=== PATIENT | male | born 1970 | race Caucasian/White ===

== ENCOUNTER 2024-01-06 05:46 | Day surgery (SDC) | payer SELFPAY ==
--- NOTE | 2024-01-02 09:18 | EKG12_ITS ---
Test Reason : PREOP Blood Pressure : / mmHG Vent. Rate : 067 BPM Atrial Rate : 067 BPM P-R Int : 134 ms QRS Dur : 090 ms QT Int : 368 ms P-R-T Axes : 053 066 066 degrees QTc Int : 388 ms Normal sinus rhythm Normal ECG Confirmed by GIO COMER, LESLEY ([id number]), assistant production editor RADHA KELLEY ([id number]) on 01/02/2024 1:25:50 PM Referred By: Ross Samuels Confirmed By:LESLEY POWERS MD
[2024-01-02 10:25] LABS: Hematocrit 43.6 % (40-54); Hemoglobin 14.7 g/dL (13.0-16.5); Mean Corp Hgb Conc 33.7 g/dL (32-36); Mean Corpuscular Hgb 31.5 pg (27.0-32.0); Mean Corpuscular Volume 93.4 fL (80-94); Mean Platelet Vol. 10.9 fl (6.2-12.0); Platelet Count 328 K/mm3 (150-450); RBC Distribution Width CV 13.4 % (11.6-14.6); RBC Distribution Width SD 45.9 fl (35.1-43.9); Red Blood Count 4.67 M/mm3 (4.6-6.2); White Blood Count 10.8 K/mm3 (4.4-11.0)
[2024-01-02 10:41] LABS: International Normalized Ratio 1.1; Prothrombin Time (Protime)PT. 13.9 SECONDS (11.7-14.9)
[2024-01-02 10:42] LABS: Partial Thromboplast Time 31.3 Seconds (24.1-36.2)
[2024-01-02 11:09] LABS: AST(SGOT) 19 U/L (15-37); Alanine Aminotransfer ALT/SGPT 21 U/L (16-61); Albumin, Serum 3.9 g/dL (3.2-5.0); Alkaline Phosphatase 53 U/L (45-117); Anion Gap 7 (5-15); BUN 12 mg/dL (7-18); BUN/Creat Ratio 14.1 RATIO (10-20); Bilirubin, Direct 0.16 mg/dL (0.00-0.30); Calcium,Total 9.2 mg/dL (8.5-10.1); Chloride 101 mmol/L (98-107); Creatinine, Serum 0.85 mg/dL (0.70-1.30); EST Glomerular Filtration Rate 100 mL/min (>60); Est Glom Filt Rate - Afr Amer 120 mL/min (>60); Globulin 3.9 g/dL (2.2-4.2); Glucose 90 mg/dL (74-106); Potassium 4.3 mmol/L (3.5-5.1); Protein, Total 7.8 g/dL (6.4-8.2); Sodium Level 135 mmol/L (136-145)
[2024-01-06] VITALS (12 sets, daily range): BP systolic 110–151; BP diastolic 82–96; PULSE 72–90; RESP 16–18; TEMP 36.3–37.2; O2SAT 94–100; BMI 21.3
[2024-01-06] MEDS: Lactated Ringers 1,000 ML 15 ML IV (06:36)
--- NOTE | 2024-01-06 06:41 | HP.PCM_ITS ---
History and Physical Date of Admission: 01/06/24 Intake Vital Signs 12/29/2409:05 Height 6 ft 4 in Weight: 182 lb 8 oz BMI 22.1 BP 167/100 H Blood Pressure Location Rt brachial Position Sitting Respiration 18 Pulse 86 Pulse Source Monitor Temp 97.8 F Temp Source Temporal Pulse Oximetry (%) 98 Oxygen Delivery Method room air Intake Visit Reasons: SELF REFERRED INGUINAL HERNIA Chief Complaint: Self referred left inquinal hernia Hospital Director Required: No Is patient in pain?: No Allergies No Known Allergies Allergy (Unverified 12/30/23 10:06) Medications ?Medication ?Instructions ?Recorded ?Confirmed ?Type NK 12/30/23 12/30/23 History [facility] Medical History (Updated 12/30/23 @ 10:[address] Ross Samuels MD) Inguinal hernia of left side without obstruction or gangrene Surgical History (Updated 12/30/23 @ 10:03 by Latisha Montano) No history of previous surgery Family History (Updated 12/30/23 @ 10:04 by Latisha Montano) Father Cancer skin cancer and nasal CVA (cerebral vascular accident)Mother Arthritis Social History (Updated 12/30/23 @ 10:05 by Latisha Montano) Smoking Status: Heavy Smoker (>10/day) alcohol intake: current alcohol intake frequency: 3 or more drinks per day Alcohol type: beer substance use type: does not use HPI HPI HPI: Patient is a 53-year-old male here for left groin bulging. He says that he was lifting something very heavy at work and a few days later noticed the bulging in his left groin. He does not describe any pain on the contralateral side. He does not describe any nausea or vomiting. The hernia is not tender unless he is lifting something heavy ROS General General: No weight change, appetite, fatigue, colon cancer, breast cancer or weakness HEENT HEENT: No difficulty swallowing, eye injury, eye surgery, swollen glands or hoarseness Endo Endocrine: No thyroid disease, diabetes mellitus, thyroid cancer, Hair loss, heat intolerance or cold intolerance Skin Skin: No rash or changing moles Breast Breast: No left breast lump, right breast lump, nipple discharge, breast pain, abnormal mammogram, abnormal US or breast enlargement Musc Musculoskeletal: No back problems, arthritis, rheumatoid arthritis, gout or joint pain Cardio Cardiovascular: No murmur, pacemaker, heart disease, atrial fibrillation, high blood pressure, heart attack, heart stent, palpitations, shortness of breat with exertion or chest pain Psych Psychiatric: No depression, anxiety or hearing voices Resp Respiratory: No shortness of breath, No sleep apnea, No cough, No COPD, No asthma, No emphysema and No wheezing Gastro Gastrointestinal: No abdominal pain, No nausea or vomiting, No diarrhea, No constipation, No blood in stool, No acid reflux, No hemorrhoids, No ulcers, No gallbladder problem and No black,tarry stools Additional Details: Left Inguinal Pain Michael Hematologic: No blood thinners, No blood disorders, No bleeding, No anemia and No blood clots Neuro Neurologic: No system reviewed and no additional complaints, except as documented, No as per HPI, No abnormal gait, No abnormal hearing, No abnormal movements, No abnormal speech, No behavioral changes, No burning sensations, No confusion, No convulsions, No disequilibrium, No dizziness, No localized weakness, No frequent falls, No headache(s), No lack of coordination, No loss of vision, No memory loss, No numbness, No other visual disturbances, No radicular pain, No restless legs, No sensory deficit, No syncope, No tingling, No tremor(s), No weakness and No other Exam Const General: cooperative Orientation: alert and oriented x3 [facility] Head: normal to inspection Neck Neck: normal visual inspection and full ROM Chest Chest palpation & inspection: normal inspection of the chest Resp Effort & Inspection: normal respiratory effort Auscultation: clear to auscultation bilaterally Cardio Rate: regular rate Rhythm: regular rhythm GI Inspection: non-distended Palpation: soft, hernia indirect inguinal on the left and nontender Skin General: no rashes or lesions noted Neuro General: patient alert and patient oriented x3 Extrem General: full ROM Psych Appearance: grossly normal Mental Status: mental status grossly normal Assessment and Plan Assessment and Plan (1) Left inguinal hernia: Status: Acute Plan: The patient has a reducible left inguinal hernia. I do not feel hernia on the opposite side. I discussed robotic assisted laparoscopic inguinal hernia repair with mesh. I discussed repairing the contralateral side if there is a hernia defect present and he would like it repaired if there is a hernia starting on the opposite side. I discussed the procedure as well as the risks including but not limited to bleeding, infection, injury other organ such as the bowel or bladder or blood supply to the testicle. Patient understands all the risks and is willing to proceed. I went over mesh placement with him in detail as well as risks. Ross Samuels MD Pager: [facility] [address] [place] [address], [address] [place] [address] Office: I have examined the patient and the H&P has been reviewed. There are no clinical changes since date of exam.
--- NOTE | 2024-01-06 07:15 | PRE.ANES_ITS ---
ASA Classification* ASA Classification ASA Classification: 2 Assessment & Plan Anesthesia* Anesthesia Assessment Anesthesia Assessment: Discussed sedation and/or anesthesia options, risks, benefits, and alternatives with patient/parents/legal guardian/POA. Questions invited. The patient/parents/legal guardian/POA seems to understand and agrees to proceed with anesthesia plan. Reviewed the physical assessment, medical history, allergy history and patient home medications list prior to surgery/procedure/anesthetic and documented any changes. Performed airway and anesthesia risk assessments. Anesthesia Type Anesthesia Type: General (12 pack beer per day) Pre-Assessment Diagnosis/Proposed Procedure Planned Operative Procedure(s): LEFT LAP ROBOTIC INGUINAL HERNIA POSS BILAT WITH MESH Anesthesia History Anesthesia History - healthcare risk control consultant: Anesthesia History - healthcare risk control consultant Hx Hospitalization No 01/01/24 11:02 Any Problems With Anesthesia No 01/01/24 11:02 Cholinesterase deficiency No 01/01/24 11:02 You/Your Family Experience No 01/01/24 11:02 fever (hyperthermia) with Relationship Recent Exposure to Contagious No 01/06/24 06:27 Disease Does patient have nerve No 01/01/24 11:02 stimulator Patient instructed to have device shut off --Does patient have Pacemaker No 01/06/24 06:27 or ICD? When Was Last Pacemaker Check QUESTION #4 FULL TEXT: You/Your Family Experience fever (hyperthermia) with Anesthesia Last Oral Intake Last Oral intake: Last Oral Intake NPO since 22:30 01/06/24 06:27 Meds taken in AM with sips of water? Meds patient instructed to take am of surgery PONV PONV - healthcare risk control consultant: PONV - healthcare risk control consultant Female No 01/01/24 11:02 HX of Motion Sickness No 01/01/24 11:02 HX of N/V After Surgery No 01/01/24 11:02 Non-Smoker No 01/01/24 11:02 Duration of Surgery greater Yes 01/01/24 11:02 than 60 minutes Number of Risk Factors 1 01/01/24 11:02 PONV Score Low Risk 01/01/24 11:02 Height & Weight Height & Weight: Anesthesia: Height & Weight Height 6 ft 4 in 01/06/24 06:27 Weight: 79.5 kg 01/06/24 06:27 Body Mass Index (BMI) 21.3 01/06/24 06:27 Respiratory Assessment Respiratory Assessment - healthcare risk control consultant: Respiratory Tract Infection Hx - healthcare risk control consultant Hx Respiratory Tract Infection No 01/01/24 11:02 STOP Sleep Apnea STOP Sleep Apnea - healthcare risk control consultant: STOP Sleep Apnea - healthcare risk control consultant Hx Hypertension Yes: NO MEDS FOR 7 YRS 01/01/24 11:02 Hx Sleep Apnea No 01/01/24 11:02 CPAP BIPAP Do you snore loudly (louder Yes 01/01/24 11:02 than talking or can be heard Do you often feel tired/ No 01/01/24 11:02 fatigued/ sleepy during daytime? Has anyone observed you stop No 01/01/24 11:02 breathing during sleep? STOP Results Positive 01/01/24 11:02 QUESTION #5 FULL TEXT : Do you snore loudly (louder than talking or can be heard through closed doors)? 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 Specify any problems Hx of Preganancy in last 3 N/A 01/01/24 11:02 Months Nurse Filling Out Transfusion DSCHRIBER 01/01/24 11:02 & Questions: Date: 01/01/24 01/01/24 11:02 Time: 11:04 01/01/24 11:02 Patient unable to answer at this time (ie. confused, unrespo /Reproduction History /Reproductive History - healthcare risk control consultant: /Reproductive Hx- healthcare risk control consultant Hx Now No 01/01/24 11:02 Gestational Age (in weeks): EDC: Hx Hx Para Hx Section SAB No 01/01/24 11:02 Active Medications Active Medications: Current Medications Generic Name Dose Route Start Last Admin Trade Name Freq PRN Reason Stop Dose Admin Cefazolin Sodium 2 gm/ Sodium 110 mls @ 150 mls/hr 01/06/24 07:30 Chloride IV 01/06/24 08:13 PREOP ONE Lactated Ringer's 1,000 mls @ 15 mls/hr 01/06/24 06:00 01/06/24 06:36 IV 15 mls/hr .Q48H SAMARIA Administration Anesthesia Focused Assessment* Temperature: 98.8 F Pulse Rate: 72 Blood Pressure: 151/89 Respiratory Rate: 16 Pulse Ox: 98 Airway Assessment Mouth opens: >3 cm Mallampati Score: II Focused Labs Anesthesia Preop lab: CBC WBC 10.8 K/mm3 (4.4-11.0) 01/02/24 09:32 RBC 4.67 M/mm3 (4.6-6.2) 01/02/24 09:32 Hgb 14.7 g/dL (13.0-16.5) 01/02/24 09:32 Hct 43.6 % (40-54) 01/02/24 09:32 Plt Count 328 K/mm3 (150-450) 01/02/24 09:32 CHEMISTRY Potassium 4.3 mmol/L (3.5-5.1) 01/02/24 09:32 Sodium 135 mmol/L (136-145) L 01/02/24 09:32 BUN 12 mg/dL (7-18) 01/02/24 09:32 Creatinine 0.85 mg/dL (0.70-1.30) 01/02/24 09:32 Glucose 90 mg/dL (74-106) 01/02/24 09:32 COAG PT 13.9 SECONDS (11.7-14.9) 01/02/24 09:32 Review of Systems (Anesthesia) ROS Narrative System reviewed and no additional complaints, except as documented. [facility] Medical History Wears glasses Alcohol use Back pain Migraine headache Shortness of breath on exertion Chronic cough Leg cramps Smoker Hypertension History of irregular heartbeat Inguinal hernia of left side without obstruction or gangrene Home Medications ?Medication ?Instructions ?Recorded ?Last Taken ?Type NK 12/30/23 Unknown History Allergy/AdvReac Type Severity Reaction Status Date / Time No Known Allergies Allergy Verified 01/06/24 06:25 Family History Father Cancer skin cancer and nasal CVA (cerebral vascular accident) Mother Arthritis Surgical History No history of previous surgery Social History Smoking Status: Heavy Smoker (>10/day) alcohol intake: current alcohol intake frequency: 3 or more drinks per day Alcohol type: beer substance use type: does not use
[2024-01-06] MEDS: Cefazolin 2 GM in 0.9% Normal Saline (100mL Bag) 100 ML IV (07:21)
[2024-01-06] MEDS: Bupivacaine Mpf 0.5% 30 ML VIAL (08:19)
--- NOTE | 2024-01-06 08:40 | PCM.POST.ANE ---
Anesthesia: Postop Eval I Current Vital Signs Temperature: 97.7 F Pulse Rate: 90 Blood Pressure: 110/82 Respiratory Rate: 18 Pulse Ox: 97 Oxygen Delivery Method: Room Air Assessment Airway patent: Yes Spontaneous unlabored respirations: Yes Mental status: Awake and Calm nausea: No Vomiting: No Anesthesia Complication: No Fluid Hydration Crystalloid volume administer (ml): 1,000 Total IV fluid infused: 1,000 Progress Note Anesthesia document: Postop Eval 1 completed: Yes
--- NOTE | 2024-01-06 09:13 | POSTOPAN2_ITS ---
Anesthesia Postop Eval I Sum Postop Eval Completion status Anesthesia document: Postop Eval 1 completed: Yes Anesthesia Postop Eval I Summary Anesthesia Postop Eval I Summary: Anesthesia Postop Eval I: Assessment Summary Airway patent Yes 01/06/24 08:41 FLAT BREAKDOWN PROCESSOR.CSIR Spontaneous unlabored Yes 01/06/24 08:41 FLAT BREAKDOWN PROCESSOR.CSIR respirations Mental status Awake,Calm 01/06/24 08:41 FLAT BREAKDOWN PROCESSOR.CSIR nausea No 01/06/24 08:41 FLAT BREAKDOWN PROCESSOR.CSIR Vomiting No 01/06/24 08:41 FLAT BREAKDOWN PROCESSOR.CSIR Anesthesia Postop Eval I: Fluid Summary Crystalloid volume administer 1,000 01/06/24 08:41 FLAT BREAKDOWN PROCESSOR.CSIR (ml) Colloids volume administered ( ml) Blood Product volume administered (ml) Total IV fluid infused 1,000 01/06/24 08:41 FLAT BREAKDOWN PROCESSOR.CSIR Anesthesia Postop Eval I: Summary Notes Anesthesia Complication No 01/06/24 08:41 FLAT BREAKDOWN PROCESSOR.CSIR Anesthesia Complication Comment: Post-operative progress note Anesthesia: Postop Eval II Evaluation Mental status: Awake Pain Level: 0 nausea: No Vomiting: No Complications Anesthesia Complication: No
--- NOTE | 2024-01-06 09:13 | PCM.POSTANE2 ---
Anesthesia Postop Eval I Sum Postop Eval Completion status Anesthesia document: Postop Eval 1 completed: Yes Anesthesia Postop Eval I Summary Anesthesia Postop Eval I Summary: Anesthesia Postop Eval I: Assessment Summary Airway patent Yes 01/06/24 08:41 ORTHOTIC PRACTITIONER.CSIR Spontaneous unlabored Yes 01/06/24 08:41 ORTHOTIC PRACTITIONER.CSIR respirations Mental status Awake,Calm 01/06/24 08:41 ORTHOTIC PRACTITIONER.CSIR nausea No 01/06/24 08:41 ORTHOTIC PRACTITIONER.CSIR Vomiting No 01/06/24 08:41 ORTHOTIC PRACTITIONER.CSIR Anesthesia Postop Eval I: Fluid Summary Crystalloid volume administer 1,000 01/06/24 08:41 ORTHOTIC PRACTITIONER.CSIR (ml) Colloids volume administered ( ml) Blood Product volume administered (ml) Total IV fluid infused 1,000 01/06/24 08:41 ORTHOTIC PRACTITIONER.CSIR Anesthesia Postop Eval I: Summary Notes Anesthesia Complication No 01/06/24 08:41 ORTHOTIC PRACTITIONER.CSIR Anesthesia Complication Comment: Post-operative progress note Anesthesia: Postop Eval II Evaluation Mental status: Awake Pain Level: 0 nausea: No Vomiting: No Complications Anesthesia Complication: No
--- NOTE | 2024-01-06 10:17 | PCM.OPRPT ---
Report of Operation Date of Procedure: 01/06/24 Pre-Operative Diagnosis: Left inguinal hernia Post-Operative Diagnosis: Same Surgery/Procedure Performed:: Robotic assisted laparoscopic left inguinal hernia repair with mesh Type of Anesthesia: General/Regional Specimen's removed: None Estimated Blood Loss (mL): 10 Description of Procedure: Patient was brought back to the operating room and general anesthesia was induced. The abdomen was then prepped and draped in the usual sterile fashion. An incision was made superior to the umbilicus and the fascia was grasped and elevated. A Veress needle was placed into the abdomen and a drop test was performed. Abdomen was then insufflated to 15 mmHg. The Veress needle was removed and a port was placed into the abdomen. Camera was placed into the abdomen and it was inspected and there were no injuries from entry. Next patient was placed in Trendelenburg position. The patient had a left inguinal hernia but no right inguinal hernia. Next an incision was made in the left lateral abdomen and n 8 mm port was placed. In same fashion under direct visualization a 8 mm port was placed in the right lateral abdomen. The robot was docked. Using electrocautery scissors an incision was made in the left inguinal peritoneum. Dissection was carried inferiorly until the hernia sac was encountered and reduced. There was good hemostasis. Dissection was carried inferiorly until there was good overlap. Next a full piece of ProGrip mesh was unfolded over the left inguinal region and placed with good coverage of the hernia. Next the peritoneum was reapproximated using a running 3 OV lock suture. There was a small rent in the peritoneum from dissection and this was closed with an additional 3 oh V-Loc suture. The mesh was completely covered with peritoneum at the end of the case. There was good hemostasis. Next the robot was undocked and the ports were removed and the abdomen was allowed to desufflate. The incisions were injected with local anesthetic and closed with interrupted 4-0 Monocryl sutures. Steri-Strips and bandages were applied. The scrotum was checked at the end the case and contain both testicles. Patient was awoken and taken to PACU in stable condition. Grafts/Implants Used: ProGrip mesh in the left inguinal region Admit VTE Documentation VTE Mechan Device Prophylaxis: SCD's
--- NOTE | 2024-01-06 10:20 | DCINST_ITS ---
Discharge Instructions Diet Discharge Diet: Light diet - advance as tolerated Activity Discharge Activity: May Not Drive (for 2-3 days or while taking narcotic pain meds.) and May Shower (with the bandage in place 1-2 days after surgery.) Lifting Restrictions: 20 pounds for 4 weeks Additional Activity Instructions:: Climbing stairs is fine, walking is encouraged. Sitting in bed may be uncomfortable. Sitting up using your lateral muscles (sitting up sideways) is usually more comfortable. Do not drive, work heavy equipment or sign legal documents for 24 hours. If your hernia repair was an inguinal repair, you may have scrotal swelling, an ice pack and/or athletic support can provide more comfort. Pain medications may cause nausea, you should typically eat light foods as you take your pain medications. Pain medications may also cause constipation. If you have difficulty with this, discuss with your doctor. Alternate ibuprofen and Tylenol for pain, oxycodone for breakthrough pain Dressing / Incision Call your doctor if your incision/area has: Continuous Slow Oozing, Sudden Increased Bleeding, Increased Pain/ Swelling, Increased Redness and Foul Smelling Discharge Call your doctor if you observe: Fever of 101 or Higher Suture Line Care: Avoid Pulling/Pushing and Avoid Pinching/Bending Remove Dressing in: 2 days (Remove clear bandages in 2 days, remove Steri-Strips in 7 to 10 days.) Follow Up Care Please Follow Up With: Ross Samuels MD When: Please call to schedule 2 week follow up appointment. [phone] Test Results: Test results from this visit will be discussed in further detail at your follow- up appointment, if applicable. Discharge Plan Admission Attending Provider: Ross Samuels Primary Care Provider: Iesha Lindsey Instructions Print Language: Vietnamese Discharge Orders/Prescriptions Prescriptions: New oxycodone 5 mg Tablet 5 - 10 mg PO Q4H PRN PRN (Reason: Pain Score 4-10) 5 Days Qty: 10 0RF Referrals / Follow Up: Iesha Lindsey DO [Primary Care Provider] - Disposition Disposition (needs filled in before D/C Order can be placed): Home, Self Care
[2024-01-06] MEDS: oxyCODONE 5 MG Tablet PO (10:41)
== END 2024-01-06 11:53 | disposition home or self-care (01) ==
LOC: SDC 05:48 → AC 05:49
PROVIDERS: Anesthesiology; PCP Internal Medicine; Referring Provider Surgery; Visit Provider Surgery
PROC: 0YQ64ZZ Repair Left Inguinal Region, Percutaneous Endoscopic Approach (ICD-10-PCS; CPT 49650; principal; 2024-01-06 07:10)
DX: K40.90 Unilateral inguinal hernia, without obstruction or gangrene, not specified as recurrent (principal); F17.200 Nicotine dependence, unspecified, uncomplicated; I10 Essential (primary) hypertension
CPT/HCPCS: 49650; S2900; 00830; 36415; 80048; 80076; 85027; 85610; 85730; 93005; J7120; J2405